=== PATIENT | male | born 1955 | race Caucasian/White ===

== ENCOUNTER 2022-05-13 19:50 | Observation (INO) ==
[~2022-05-13 19:50] MED LIST: GLYCOPYRROLATE 0.2 MG/ML VIAL IV ONE; HYDROmorphone 1 MG/ML SYRINGE ONE; KETAMINE 50 MG/ML Syringe (ANEST) IV ONE; LIDOCAINE HCL/PF 100 MG/5 ML SYRINGE IV ONE; MAGNESIUM SULFATE 2 GM/50 ML BAG IV ONE; ONDANSETRON 4 MG/2 ML VIAL ONE; PHENYLephrine 1 MG/10 ML SYRINGE (ANEST) ONE; PROPOFOL 200 MG/20 ML VIAL IV ONE; fentaNYL 100 MCG/2 ML VIAL IV ONE
[2022-05-13] MEDS ORDERED: HYDROmorphone 1 MG/ML SYRINGE IV ONE (19:57)
[2022-05-13] MEDS ORDERED: KETOROLAC 30 MG/ML VIAL IV ONE (19:57)
[2022-05-13] MEDS ORDERED: ONDANSETRON 4 MG/2 ML VIAL IV ONE (19:57)
[2022-05-13 20:14] LABS: POC Calcium, Ionized 1.25 (1.16-1.32); POC Creatinine 1.2 (0.6-1.2)
[2022-05-13] MEDS ORDERED: MAGNESIUM HYDROXIDE 30 ML ORAL.SUSP PO PRN (20:37)
[2022-05-13] MEDS ORDERED: DEXTROSE 31 GM ORAL.SUSP PO PRN (20:37)
[2022-05-13] MEDS ORDERED: ONDANSETRON 4 MG/2 ML VIAL IV PRN (20:37)
[2022-05-13] MEDS ORDERED: DEXTROSE 50% 50 ML VIAL IV PRN (20:37)
[2022-05-13] MEDS ORDERED: oxyCODONE/APAP 5/325MG TABLET PO PRN (20:37)
[2022-05-13] MEDS ORDERED: MAG HYDROX/AL HYDROX/SIMETH 30 ML ORAL.SUSP PO PRN (20:37)
[2022-05-13] MEDS ORDERED: morphine 4 MG/ML VIAL IV PRN (20:37)
[2022-05-13] MEDS ORDERED: KETOROLAC 30 MG/ML VIAL IV PRN (20:43)
[2022-05-13] MEDS: 0.45 % SODIUM CHLORIDE 1,000 ML IV SCH (20:53)
[2022-05-13] MEDS ORDERED: glipiZIDE 5 MG TABLET PO SCH (21:00)
[2022-05-13] MEDS ORDERED: METFORMIN 1000 MG PO SCH (21:00)
--- NOTE | 2022-05-13 21:03 | Emergency Department Note ---
Abdominal Pain HPI General Chief Complaint: Flank Pain Stated Complaint: kidney stone Time Seen by Provider: 05/13/22 19:54 Source: family Mode of arrival: ambulatory Limitations: no limitations History of Present Illness HPI Narrative: Narrative: 66-year-old male presents the emergency room with left-sided flank pain. He was seen by his primary care doctor today who diagnosed with a probable left-sided kidney stone. They did an x-ray and said it measured at 12 mm asymptomatic with hydrocodone hoping to control the pain he could follow-up with urology or return to the ER symptoms worsen. He said he was unable to control the pain at home. Said got worse. He has had history of removing a large stone that needed to get lasered to get removed by Dr. Oliveira. He has a well known to the patient. Patient states that the pain has not gotten any better did start couple days ago and slowly getting worse. He is still able to urinate. Denying any other symptoms symptoms otherwise Related Data Home Medications Medication Instructions Recorded Confirmed aspirin 81 mg chewable tablet 81 mg PO QDAY 09/18/14 05/13/22 timolol 0.5 % eye drops 1 drp ophthalmic (eye) QHS 05/13/22 05/13/22 Previous Rx's Medication Instructions Recorded metformin 1,000 mg tablet 1,000 mg PO BID #180 tabs 11/17/21 glipizide 5 mg tablet 2.5 mg PO BID #90 tabs 12/17/21 losartan 25 mg tablet (Cozaar) 25 mg PO QDAY #90 tabs 04/23/22 simvastatin 20 mg tablet (Zocor) 20 mg PO QAM #90 tabs 04/23/22 hydrocodone 7.5 mg-acetaminophen 1 tab PO BID PRN pain #14 tabs 05/13/22 325 mg tablet tamsulosin 0.4 mg capsule 0.4 mg PO QDAY #20 caps 05/13/22 Allergies Allergy/AdvReac Type Severity Reaction Status Date / Time No Known Drug Allergies Allergy Verified 05/13/22 14:59 Review of Systems ROS ROS Narrative: Narrative: All systems ED: reviewed and negative except as stated. [facility] Narrative Patient History Narrative: Narrative: Medical/Surgical/Family History All Active Problems (Updated 05/13/22 @ 21:06 by Rocco Greene DO) Benign localized hyperplasia of prostate without urinary obstruction (Acute) History of colonic polyps (Acute) Diabetes mellitus, type II (Acute) Hyperlipidemia (Acute) Hypertension, essential (Acute) History of colonoscopy (Acute) History of inguinal hernia repair (Acute) History of extraction of renal calculus (Acute) History of tympanostomy tube placement (Acute) Contusion of rib on left side (Acute) Acute whiplash injury (Acute) Viral URI with cough (Acute) Microscopic hematuria (Acute) Kidney stones (Acute) Renal cysts, congenital, bilateral (Acute) Rising PSA remaining within normal limits (Acute) Left flank pain (Acute) Left ureteral stone (Acute) Left renal stone (Acute) Hydronephrosis, left (Acute) Medical History Benign localized hyperplasia of prostate without urinary obstruction Diabetes mellitus, type II History of colonic polyps Hyperlipidemia Hypertension, essential Viral URI with cough Surgical History History of colonoscopy History of extraction of renal calculus History of inguinal hernia repair R History of tympanostomy tube placement r Family History Unknown Family history not obtainable due to adoption Social History Smoking Status: Never smoker Alcohol Intake Frequency: does not drink Substance Use: does not use Exam Narrative Narrative: Narrative: Vital signs noted General: Awake. Alert. No distress. Skin: Warm. Dry. No rash. HEENT: NCAT. PERRL. EOMI. No conjunctivitis. Membranes moist. Neck: Good ROM. No meningeal signs. No stridor. Cardiovascular: RRR. Respiratory: No respiratory distress. Gastrointestinal: Abdomen soft. No tenderness. No distention. Back: No deformity. No CVAT. Musculoskeletal: No tenderness. No swelling. No erythema. No edema. Good peripheral pulses x 4 Neurological: No focal neurological deficits observed. General Limitations: no limitations Course Vital Signs Vital signs: Vital Signs Temperature 98.2 F 05/13/22 19:51 Pulse Rate 108 H 05/13/22 19:51 Respiratory Rate 17 05/13/22 19:51 Blood Pressure 178/95 05/13/22 19:51 Pulse Oximetry (%) 98 05/13/22 19:51 Oxygen Delivery Method Room Air 05/13/22 19:51 Temperature 98.2 F 05/13/22 19:51 Pulse Rate 108 H 05/13/22 19:51 Respiratory Rate 17 05/13/22 19:51 Blood Pressure 178/95 05/13/22 19:51 Pulse Oximetry (%) 98 05/13/22 19:51 Oxygen Delivery Method Room Air 05/13/22 19:51 MDM MDM Narrative Medical decision making narrative: Narrative: Patient looks well and appears not in any acute distress. Patient will have repeat labs including CBC CMP and a urinalysis done. These all came back showing a normal creatinine CBC was normal just with a mild leukocytosis as well as a urinalysis that was normal. These are all interpreted by myself. Did get a CT which was personally interpreted by myself as well which showed moderate left-sided hydronephrosis and multiple calculi in the left proximal and mid ureter. I also did get the official read which did show the left hydronephrosis and multiple calculi in the left proximal ureter. Patient did receive IV fluids rehydration, IV Zofran for nausea as well as IV Dilaudid for pain control and IV Toradol for pain control. Patient is still in pain I think patient need may need to be admitted for further evaluation and treatment of his possible surgical management of his kidney stones I did call and speak with the urologist Dr. Oliveira who does agree with this and said that he will admit him under his service. Patient will be admitted in fair condition for large kidney stones with hydroureter to the left ureter. Total critical care time of 31 min including performance of history and physical exam, review of results, re-examinations, time spent documenting, order selector, review of old records, discussions with patient and family, discussions with process consultant(s), discussion with admitting physician, completion of admission/transfer paperwork. This does not include time for any separately documented procedures. Lab Data Labs: Lab Results 05/13/22 Range/Units 20:11 POC Hct 41.0 (41-55) POC Sodium 137 (133-145) POC Potassium 4.0 (3.3-5.1) POC Chloride 101 (96-108) POC Total CO2 23.0 (22-30) POC BUN 18 (6-20) POC Creatinine 1.2 (0.6-1.2) POC Glucose 188 H (70-105) POC WB Ioniz Calcium 1.25 (1.16-1.32) Discharge Plan Patient/Caregiver Discharge Instructions Pt seen by REFRIGERATION MECHANIC HELPER/PA only: No Clinical Impression: Left ureteral stone Activity: increase activity as tolerated Patient Disposition: Xfer As Outpt/Obs ([facility]) Condition: Fair Follow up with: Kerwin Worley MD [Primary Care Provider] - Prescriptions: No Action metformin 1,000 mg tablet 1,000 mg PO BID Qty: 180 1RF glipizide 5 mg tablet 2.5 mg PO BID Qty: 90 1RF losartan [Cozaar] 25 mg tablet 25 mg PO QDAY Qty: 90 1RF simvastatin [Zocor] 20 mg tablet 20 mg PO QAM Qty: 90 1RF aspirin 81 mg tablet,chewable 81 mg PO QDAY tamsulosin 0.4 mg capsule 0.4 mg PO QDAY Qty: 20 0RF hydrocodone-acetaminophen 7.5-325 mg tablet 1 tab PO BID PRN (Reason: pain) Qty: 14 0RF
[2022-05-13 22:09] LABS: Appearance,Urine CLEAR (Clear); Bilirubin,Urine NEGATIVE (Negative); Color,Urine LT. YELLOW; Culture Indicated,Urine No; Glucose,Urine (UA) 250 mg/dL (Negative); Ketones,Urine 15 mg/dL (Negative); Leukocyte Esterase,Urine NEGATIVE /uL (Negative); Mucus,Urine FEW /hpf; Nitrate,Urine NEGATIVE (Negative); PH,Urine 5.5 (5.0-9.0); Protein,Urine 100 mg/dL (Negative); Specific Gravity,Urine >= 1.030 (1.000-1.035); Urine Blood SMALL ery/mcL (Negative); Urine RBC 3 /hpf (0-3); Urine Squamous Epithelial Cell 0 /hpf (0-4); Urine WBC < 1 /hpf (0-4); Urobilinogen,Urine Normal
[2022-05-13] MEDS: 0.9 % SODIUM CHLORIDE 10 ML SYRINGE IV SCH (23:54)
[2022-05-13] MEDS: INSULIN LISPRO 1 UNIT/0.01 ML UNIT SQ SCH (23:54)
--- NOTE | 2022-05-14 05:24 | Cat Scan Report ---
INDICATION: possible kidney stone COMPARISON: Previous CT IVP dated 10/19/2021 TECHNIQUE: Axial images were obtained through the abdomen and pelvis. Sagittally and coronally reformatted images. FINDINGS: Examination was initially interpreted by [facility] Lung bases:Lung bases are negative. There is coronary artery calcification with calcified plaque in the left anterior descending coronary artery and proximal circumflex Liver:Negative to the limits of noncontrast enhanced examination. Liver contour is smooth without evidence for cirrhosis Gallbladder, bilary:No calcified gallstones. No gallbladder wall thickening. No pericholecystic fluid. No dilated bile ducts Spleen:No splenomegaly Pancreas:No pancreatic mass. No peripancreatic abnormality Adrenal glands:Negative Kidneys,ureters,bladder:No obstructing or nonobstructing right renal calculi. No right hydronephrosis. There are poorly visualized low density right renal masses. Previous IVP demonstrated benign simple cyst. There is been no interval change There are multiple left renal calculi. These calculi are in the inferior pole. Largest stone measures approximately 9 mm. There are multiple low-density masses. These are essentially unchanged since previous IVP and are cysts. There is moderate to severe left hydronephrosis, new since previous examination. There is perinephric infiltration. There is proximal left hydroureter. There are multiple stones in the mid left ureter. These are at approximately the L5-S1 level. Largest stone is the most inferior and measures approximately 9 mm No bladder stone. No detectable bladder mass. Gastrointestinal:No detectable colonic mass. There is no diverticulitis. Negative small bowel. No mechanical small bowel obstruction. No bowel wall thickening. No focal abnormality. Negative stomach and duodenum. No focal abnormality. Appendix: The appendix is negative Vascular:No abdominal aortic aneurysm. Origins of the celiac trunk and superior mesenteric artery are normal. No significant calcified plaque at either renal artery origin Lymphatic:No retroperitoneal adenopathy. No significant mesenteric adenopathy. Mesentery, peritoneum:No free intraperitoneal fluid. No intra-abdominal abscess. No pneumoperitoneum Reproductive:Prostate is enlarged and calcified Musculoskeletal:No lumbar compression fractures. No lytic lesions. Sacrum, pelvis, hips are negative No anterior abdominal wall or inguinal hernia. IMPRESSION: 1. Multiple stones in the mid left ureter with proximal left hydroureter and left hydronephrosis. Largest ureteral stone measures approximately 9 mm 2. Multiple nonobstructing left lower pole renal calculi 3. Bilateral renal masses consistent with benign cysts 4. Coronary artery calcification The exam was performed using radiation dose optimization techniques including, but not limited to, automated exposure control, adjustment of the mA and/or kV according to patient size and use of iterative reconstruction technique. Interpreted and Authenticated by: Paul Royal 05/14/22
[2022-05-14] MEDS: 0.9 % SODIUM CHLORIDE 10 ML SYRINGE IV SCH ×3 (07:06→21:00)
[2022-05-14] MEDS: INSULIN LISPRO 1 UNIT/0.01 ML UNIT SQ SCH ×4 (07:06→21:08)
[2022-05-14] MEDS ORDERED: KETOROLAC 15 MG/ML VIAL IV PRN (07:30)
--- NOTE | 2022-05-14 07:51 | Urology History & Physical ---
HPI History of Present Illness Patient information: Note initiated : 05/14/22 at 7:42 am Service Date, if different from initiated Date: [] Patient: Alex Nichole 66 y/o M admitted on 05/13/22 for kidney stone. Chief Complaint: [Left flank pain, left ureteral stone, left renal stone.] Chief complaint: Severe left flank pain not controlled with oral pain medication History of present illness: Keegan is a 66-year-old male with a known history of kidney stones. I last saw him in the office on November 20, 2021. At that time he had stones in the kidneys that were nonobstructing and he did not wish to treat them. Yesterday he had the acute onset of severe left flank pain. The pain was not controlled with oral pain medication and he presented to the emergency room. Noncontrast CT scan of the abdomen and pelvis was obtained in the ER on May 13 this revealed moderate to severe left hydronephrosis with numerous stones within the mid left ureter. There are also stones within the left lower pole. There are also multiple low-density lesions in the left kidney which are unchanged since prior IVP and are cysts. Review of Systems All systems: reviewed and no additional remarkable complaints except as stated Constitutional Constitutional: Present as per HPI Genitourinary Genitourinary: as per HPI and flank pain PFSH PFSH All Active Problems Hydronephrosis, left (Acute) Left renal stone (Acute) Left ureteral stone (Acute) Left flank pain (Acute) Rising PSA remaining within normal limits (Acute) Renal cysts, congenital, bilateral (Acute) Kidney stones (Acute) Microscopic hematuria (Acute) Benign localized hyperplasia of prostate without urinary obstruction (Acute) History of colonic polyps (Acute) Diabetes mellitus, type II (Acute) Hyperlipidemia (Acute) Hypertension, essential (Acute) History of colonoscopy (Acute) History of inguinal hernia repair (Acute) History of extraction of renal calculus (Acute) History of tympanostomy tube placement (Acute) Contusion of rib on left side (Acute) Acute whiplash injury (Acute) Viral URI with cough (Acute) Medical History Benign localized hyperplasia of prostate without urinary obstruction Diabetes mellitus, type II History of colonic polyps Hyperlipidemia Hypertension, essential Viral URI with cough Surgical History History of colonoscopy History of extraction of renal calculus History of inguinal hernia repair R History of tympanostomy tube placement r Family History Unknown Family history not obtainable due to adoption Social History adopted: Yes marital status: education level: college occupational status: employed other: 3 children and 2 grandchildren smoking status: Never smoker alcohol intake frequency: does not drink substance use type: does not use MEDS/ALLERGIES Home Medications and Allergies Home Medications Medication Instructions Recorded Confirmed Type aspirin 81 mg chewable tablet 81 mg PO QDAY 09/18/14 05/13/22 History metformin 1,000 mg tablet 1,000 mg PO BID #180 tabs 11/17/21 05/13/22 Rx glipizide 5 mg tablet 2.5 mg PO BID #90 tabs 12/17/21 05/13/22 Rx losartan 25 mg tablet (Cozaar) 25 mg PO QDAY #90 tabs 04/23/22 05/13/22 Rx simvastatin 20 mg tablet (Zocor) 20 mg PO QAM #90 tabs 04/23/22 05/13/22 Rx hydrocodone 7.5 mg-acetaminophen 1 tab PO BID PRN pain #14 tabs 05/13/22 05/13/22 Rx 325 mg tablet tamsulosin 0.4 mg capsule 0.4 mg PO QDAY #20 caps 05/13/22 05/13/22 Rx timolol 0.5 % eye drops 1 drp ophthalmic (eye) QHS 05/13/22 05/13/22 History Allergies Allergy/AdvReac Type Severity Reaction Status Date / Time No Known Drug Allergies Allergy Verified 05/13/22 14:59 Physical Examination Vital Signs Vital signs: Temp Pulse Resp BP Pulse Ox O2 Del Method 98.4 F 79 20 131/77 97 Room Air 05/14/22 07:09 05/14/22 07:09 05/14/22 07:09 05/14/22 07:09 05/14/22 07:09 05/14/22 07:09 General physical appearance General physical exam: well developed, well nourished and no distress Head Head exam IM: Present atraumatic, normal inspection and normocephalic Neck Neck exam: trachea midline Respiratory Respiratory exam: normal respiratory effort and clear to auscultation Abdomen Abdomen: Present soft and non tender Psychiatric Psychiatric: Present oriented to time, oriented to person, oriented to place and speech is normal Results Labs Labs: Abnormal lab results 05/13/22 05/13/22 Range/Units 20:11 21:05 POC Glucose 188 H (70-105) Urine Protein 100 A (Negative) mg/dL Urine Glucose (UA) 250 A (Negative) mg/dL Urine Ketones 15 A (Negative) mg/dL Urine Occult Blood Small A (Negative) ren/mcL Urine Mucus Few A (None) /hpf All other labs normal. Imaging Abdominal x-ray: report reviewed and image reviewed CT scan - abdomen: report reviewed and image reviewed CT scan - pelvis: report reviewed and image reviewed A/P Assessment and plan (1) Hydronephrosis, left: Status: Acute (2) Left renal stone: Status: Acute (3) Left ureteral stone: Status: Acute (4) Left flank pain: Status: Acute (5) Renal cysts, congenital, bilateral: Status: Acute Sepsis Sepsis Identified: No Narrative A/P Narrative: Keegan is a 66-year-old male with a known history of kidney stones who presented to the emergency department last night with the acute onset of left flank pain that was not controlled with oral pain medication. Noncontrast CT scan of the abdomen and pelvis revealed numerous stones that were obstructing in the mid left ureter with proximal ureterectasis and moderate to severe left hydronephrosis. There were also left lower pole stones. He was admitted to the hospital for pain control. He was kept n.p.o. after midnight. We discussed going to the operating room and under general anesthesia, as an outpatient, performing cystoscopy, left retrograde pyelogram, left ureteroscopy, left laser lithotripsy, left ureteral stone basketing, and left ureteral stent placement. I discussed the procedure with the patient. We discussed possible risks and side effects including, but not limited to: bleeding, infection, damage to the urethra and to the bladder, damage to the left ureter and left kidney, postoperative urgency and frequency, postoperative hematuria, incomplete treatment of the stone, the possible need for further treatment and/or surgery, small risks of heart attack, stroke and , and risks of anesthesia that the patient will discuss separately with the anesthesia provider prior to the procedure. The patient understands that at the time of the procedure we will place a left ureteral stent. I explained what this is and that it is a temporary device. This will need to be removed in the office approximately 1 week after definitive treatment of the stone. The patient understands the procedure and its associated risks. A signed consent form was obtained. We discussed that I will make every attempt to treat the ureteral stone as well as the left lower pole stone if we are able. There is a chance that we may only be able to treat the left ureteral stone. There is also a chance that we may not be able to get to either collection of stones and that we may simply place a left ureteral stent. An EKG was performed and I will obtain a chest x-ray. He remains NPO. He is scheduled to go to the operating room at approximately 4 PM. He should be able to go home afterwards. Time Spent With Patient Time: Total time spent is greater than 50% in coordination of care (as documented) at patient's floor/unit and/or counseling patient:
[2022-05-14] MEDS: metFORMIN 500 MG TABLET PO SCH ×2 (08:12→19:26)
[2022-05-14] MEDS: glipiZIDE 5 MG TABLET PO SCH ×2 (08:12→19:23)
[2022-05-14] MEDS ORDERED: SIMVASTATIN 20 MG TABLET PO SCH (09:00)
[2022-05-14] MEDS ORDERED: LOSARTAN 25 MG TABLET PO SCH (09:00)
--- NOTE | 2022-05-14 11:12 | XRay Report ---
INDICATION: Pre-Op. goling to surgery at 3:30 PM TECHNIQUE: AP portable upright chest x-ray COMPARISON: Previous examination dated 04/26/2012 FINDINGS: Lungs:Lungs are negative. No focal pulmonary parenchymal infiltrate or mass Heart, vascular:No significant cardiomegaly. Pulmonary vascularity is normal. No pulmonary edema or pulmonary congestion Mediastinum, donavan:No mediastinal widening. No hilar mass Pleura:No pleural fluid. No pleural-based mass or calcification Skeletal:Negative. IMPRESSION: 1. Negative AP portable chest x-ray 2. No significant interval change Interpreted and Authenticated by: Paul Royal 05/14/22
--- NOTE | 2022-05-14 14:15 | EKG ---
[facility] Test Date: 2022-05-14 Pat Name: Alex Nichole Department: [facility] Room: 108 Gender: Male [employer] Salesperson: : [id number] Requested By: Willie Avila Order Number: [id number] Reading MD: Soren Juan Measurements Intervals [place] Rate: 80 P: 24 [place]: 219 QRS: -3 QRSD: 81 T: 21 QT: 392 QTc: 452 Interpretive Statements Sinus rhythm Borderline prolonged [place] interval Minimal ST elevation, anterior leads Electronically Signed On 05-14-2022 14:14:56 PST by Soren Juan /store/[email or web address]/[id number]
[2022-05-14] MEDS: 0.45 % SODIUM CHLORIDE 1,000 ML IV SCH ×2 (14:29→19:22)
[2022-05-14] MEDS ORDERED: IOVERSOL 100 ML VIAL IV ONE (15:11)
[2022-05-14] MEDS ORDERED: LIDOCAINE 2% URO-JET 10 ML JEL.PF.APP UR ONE (15:11)
[2022-05-14] MEDS ORDERED: IPRATROPIUM/ALBUTEROL 3 ML AMPUL.NEB NEB PRN ×2 (16:00→16:54)
[2022-05-14] MEDS ORDERED: SCOPOLAMINE 1 PATCH PATCH TOPICAL PRN (16:00)
[2022-05-14] MEDS ORDERED: GENTAMICIN SULFATE IV SCH (16:30)
[2022-05-14] MEDS ORDERED: GENTAMICIN SULFATE 200 MG in 0.9 % SODIUM CHLORIDE 250 ML IV SCH (16:30)
[2022-05-14] MEDS ORDERED: SODIUM CHLORIDE 0.9% IV SCH (16:30)
[2022-05-14] MEDS ORDERED: ceFAZolin 2 GM in DEXTROSE 5% IN WATER 50 ML IV SCH ×2 (16:30)
[2022-05-14] MEDS ORDERED: NALOXONE HCL 0.4 MG/ML VIAL IV PRN (16:54)
[2022-05-14] MEDS ORDERED: fentaNYL 100 MCG/2 ML VIAL IV PRN (16:54)
[2022-05-14] MEDS ORDERED: MEPERIDINE 25 MG/ML VIAL IV PRN (16:54)
[2022-05-14] MEDS ORDERED: HYDROmorphone 0.5 MG/0.5 ML SYRINGE IV PRN (16:54)
[2022-05-14] MEDS ORDERED: METHOCARBAMOL 1,000 MG/10 ML VIAL IV PRN (16:54)
[2022-05-14] MEDS ORDERED: ACETAMINOPHEN 1,000 MG/100 ML BAG IV ONE (16:54)
[2022-05-14] MEDS ORDERED: ONDANSETRON 4 MG/2 ML VIAL IV PRN ×2 (16:54→18:02)
[2022-05-14] MEDS ORDERED: METOPROLOL TARTRATE 5 MG/5 ML VIAL IV PRN (16:54)
[2022-05-14] MEDS ORDERED: LACTATED RINGERS 250 ML IV PRN (16:54)
[2022-05-14] MEDS ORDERED: LABETALOL 5 MG/ML ML IV PRN (16:54)
[2022-05-14] MEDS ORDERED: LACTATED RINGERS 1,000 ML IV SCH (17:00)
--- NOTE | 2022-05-14 17:59 | Discharge Plan ---
Discharge Plan Patient/Caregiver Discharge Instructions Activity: increase activity as tolerated and resume usual activities as tolerated Diet: Regular Diet Instructions: Cystoscopy (DC), Ureteral Stent Placement (DC), Lithotripsy (DC) Prescriptions: New sulfamethoxazole-trimethoprim [Bactrim DS] 800-160 mg tablet 1 tab PO BID Qty: 14 0RF hydrocodone-acetaminophen 5-325 mg tablet 1 tab PO Q6H PRN (Reason: pain) Qty: 8 0RF Continued metformin 1,000 mg tablet 1,000 mg PO BID Qty: 180 1RF glipizide 5 mg tablet 2.5 mg PO BID Qty: 90 1RF losartan [Cozaar] 25 mg tablet 25 mg PO QDAY Qty: 90 1RF simvastatin [Zocor] 20 mg tablet 20 mg PO QAM Qty: 90 1RF aspirin 81 mg tablet,chewable 81 mg PO QDAY tamsulosin 0.4 mg capsule 0.4 mg PO QDAY Qty: 20 0RF timolol 0.5 % Drops 1 drp OPHTHALMIC (EYE) QHS Discontinued hydrocodone-acetaminophen 7.5-325 mg tablet 1 tab PO BID PRN (Reason: pain) Qty: 14 0RF Follow Up Plan Follow up with: Carlos Oliveira MD [Physician] - (The office will call you with a surgical follow up appointment date/time. If you do not hear from them by Tuesday, please call and schedule an appointment.) Kerwin Worley MD [Primary Care Provider] - (The office will call you with a hospital follow up appointment date/time. If you do not hear from them by Tuesday please call them.) Patient Disposition: Home, Self-Care Prognosis: Fair Discharge Orders: Discharge Order (Routine); Ordered 05/14/22 Ordered By: Carlos Oliveira
--- NOTE | 2022-05-14 17:59 | Operative Note ---
Brief Operative Note Date of procedure: 05/14/22 Pre-op diagnosis: Large left mid ureteral stone burden 1 cm x 4 cm and lower p ole stones Post-op diagnosis: same Procedure: Cystoscopy, left retrograde pyelogram, left ureteroscopy, left laser lithotripsy, left ureteral stone basketing, and left ureteral stent placement. Grafts/Implants: Yes (6 Ethiopian by 24 cm left ureteral stent with no string) Anesthesia: GLMA Findings: Large left mid ureteral stone burden with numerous stones obstructing measuring approximately 1 x 4 cm in total. The distal stone was the largest and was impacted. There were also numerous left lower pole stones. These were not treated as by the time I treated the mid ureteral stones the ureter was extremely edematous and inflamed. Complications: none Surgeon: Carlos Oliveira Estimated blood loss (cc): 5 Specimens Removed/Pathology: other (Stone for analysis) Condition: stable Disposition: PACU Operative Note Operative Note: After obtaining informed consent from the patient, he was brought to the operating room was placed upon on the operating table. General anesthesia was provided. He was repositioned in a dorsolithotomy position was prepped and draped in usual sterile fashion. Attention was directed to the urethral meatus where a 21 Ethiopian cystoscope was passed per urethra into the bladder. The bladder inspected and was seen to be free of tumors and stones. Both right and left ureteral orifices were identified in the normal anatomic positions. There were normal size and caliber. Both were seen to have a efflux. The left ureteral orifice was cannulated using a 0.38 Ethiopian sensor wire which was passed under fluoroscopic guidance along the stones in the left mid ureter to the left upper pole. The stones were visible on fluoroscopy there were numerous stones lined up in the left mid ureter. With the wire in place the cystoscope was removed. A dual-lumen catheter was passed over this wire and a left retrograde pyelogram was performed through the second port of the dual-lumen catheter. The stones were seen to be obstructive with proximal ureterectasis and hydronephrosis. Stones were also seen in the left lower pole and these were also radiopaque. The dual-lumen catheter was removed. A long semirigid ureteroscope was passed per urethra into the left distal ureter under direct vision and manipulated to the area of stone. There was significant inflammation and edema at the area of stone impaction. Using a 365 m laser fiber at a power of both fragmentation and dusting settings the stones were then fragmented into smaller pieces which I then basketed out. There was a kinking of the ureter in this area and I could not pass the scope further. I therefore removed the ureteroscope and replaced the dual-lumen catheter. A second 0.38 Ethiopian extra- stiff wire was passed through the second port of the dual-lumen catheter under fluoroscopic guidance into the left upper pole. The dual-lumen catheter was removed. The sensor wire was affixed to the drapes as a safety wire and the extra-stiff wire was used as a working wire. The 12-14 Ethiopian 35 cm ureteral access sheath was passed over the extra-stiff wire and under fluoroscopic guidance to the area of stone. The operators removed. The flexible disposable ureteroscope was then passed through the ureteral access sheath and numerous remaining stones were identified. Using a 200 m laser fiber at both fragmentation and dusting settings I fragmented these remaining stones and basketed them out. Once these were completely free I was able to manipulate the ureteroscope into the kidney and inspected the upper middle and lower poles. In each of the lower pole calyces appeared to be large stones. As the ureter was s o inflamed a decision was made to stop the procedure here now that the ureter was unobstructed, to leave the left ureteral stent and if necessary, to come back at a later date to treat the remaining stones. A left retrograde pyelogram was performed through the ureteroscope. The ureteroscope was then removed with the ureteral access sheath inspecting the remainder of the ureter under direct vision. There were several small stone fragments remaining in the left ureter and again severe inflammation and edema at the area of stone impaction for approximately 3 cm. The ureteroscope was then removed with ureteral access sheath. The remaining wire was backloaded through the 21 Ethiopian cystoscope which was passed into the bladder. A 6 Ethiopian by 24 cm left ureteral stent with no string was passed over the wire and under fluoroscopic guidance into the left kidney. The wire was removed and a good curl in the left upper pole and a good curl within the bladder. The bladder was irrigated and drained. The cystoscope was removed. Lidocaine jelly was placed in urethra in the bladder. The patient was returned to the spine position. He was awakened and returned to the recovery in stable condition.
[2022-05-14] MEDS ORDERED: HYDROmorphone 1 MG/ML SYRINGE IV PRN (18:02)
[2022-05-14] MEDS ORDERED: HYDROcodone/APAP 5/325MG TABLET PO PRN (18:02)
--- NOTE | 2022-05-14 18:11 | XRay Report ---
INDICATION: retrograde pyelogram TECHNIQUE: Intraoperative fluoroscopy and spot films utilized by Dr. Oliveira. Left retrograde ureterogram and stent placement performed. 1.5 minutes fluoroscopy and 24.3 mCi exposure used IMPRESSION: Intraoperative fluoroscopy and spot films Interpreted and Authenticated by: Paul Royal 05/14/22
[2022-05-14] MEDS ORDERED: 0.9 % SODIUM CHLORIDE 10 ML SYRINGE IV SCH (22:00)
[2022-05-21 17:35] LABS: Calculus Weight 0.286 g; Specimen Source LEFT KIDNEY STONE
== END 2022-05-14 22:45 | disposition home or self-care (01) ==
LOC: ED 19:50 → MEDSUR 19:50
PROVIDERS: ADMIT Urology; ATTEND Urology